=== PATIENT | male | born 1995 | race Caucasian/White ===

== ENCOUNTER 2017-07-16 01:24 | Emergency (ER) | payer OTHER ==
[~2017-07-16] VITALS: Ht 172.7 cm; Wt 89.0 kg
[2017-07-16 01:29] VITALS: BP 113/75
== END 2017-07-16 04:43 | disposition home or self-care (01) ==
LOC: ED 04:12
DX: F10.120 Alcohol abuse with intoxication, uncomplicated (principal)
CPT/HCPCS: 99283